=== PATIENT | female | born 2000 | race Caucasian/White ===

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

== ENCOUNTER 2018-02-14 22:34 | Emergency (ER) | payer SELFPAY ==
[2018-02-14] MEDS ORDERED: Ondansetron INJ* 2 MG/ML VIAL IV ONE (22:55)
[2018-02-14] MEDS ORDERED: Morphine INJ* 4 MG/ML 1 ML SYRINGE (NEW SYRINGE VERSION) IV ONE (22:55)
[2018-02-14] MEDS ORDERED: NS 0.9% 1000 ML* 1,000 ML IV ONE (22:55)
--- NOTE | 2018-02-14 23:00 | ED ---
GI/ HPI - HPI Summary HPI Summary: 17 female presents with left upper quadrant pain today. She started after she urinated and noticed some blood in her urine. She denies any history of kidney stones. she admits to nausea but denies vomiting. No diarrhea or constipation. no abnormal vaginal discharge. She has never had has pain before. Has history of asthma. She admits to some shortness breath from the pain. denies any chest pain. she admits to frequency. did not eat anything different. has not taken anything for symptoms. - History of Current Complaint Chief Complaint: EDAbdPain Time Seen by Provider: 02/14/18 22:48 Stated Complaint: BLOOD IN URINE Hx Last Menstrual Period: 08/26/16 Pain Intensity: 10 - Allergy/Home Medications Allergies/Adverse Reactions: Allergies Allergy/AdvReac Type Severity Reaction Status Date / Time bee venom protein (honey bee) Allergy Anaphylatic Verified 02/14/18 22:40 Shock Bleach (Sodium Hypochlorite) Allergy Hives Verified 02/14/18 22:40 ibuprofen Allergy Hives Verified 02/14/18 22:40 BLEACH Allergy Intermediate Hives Uncoded 02/14/18 22:40 mold Allergy Coughing Uncoded 02/14/18 22:40 smuts Allergy Coughing Uncoded 02/14/18 22:40 PMH/Surg Hx/FS Hx/Imm Hx Endocrine/Hematology History: Denies: Hx Diabetes, Hx Thyroid Disease Cardiovascular History: Denies: Hx Hypertension, Hx Pacemaker/ICD Respiratory History: Reports: Hx Asthma - CHILDHOOD, Hx Seasonal Allergies - takes zrytec daily Denies: Hx Chronic Obstructive Pulmonary Disease (COPD) GI History: Denies: Hx Ulcer Psychiatric History: Denies: Hx Panic Disorder - Surgical History Surgery Procedure, Year, and Place: none Infectious Disease History: No Infectious Disease History: Denies: Hx Clostridium Difficile, Hx Hepatitis, Hx Human Immunodeficiency Virus (HIV), History Other Infectious Disease, Traveled Outside the [place] in Last 30 Days - Family History Known Family History: Positive: Cardiac Disease, Hypertension, Diabetes - Social History Alcohol Use: Occasionally Hx Substance Use: No - pt reports no today 02/23/2017 Substance Use Type: Reports: Marijuana Substance Use Comment - Amount & Last Used: trying to quit Hx Tobacco Use: Yes Smoking Status (MU): Current Every Day Smoker Type: Cigarettes Amount Used/How Often: 5 cigs/day Length of Time of Smoking/Using Tobacco: 7 years Have You Smoked in the Last Year: Yes Review of Systems Negative: Fever Negative: Chest Pain Negative: Shortness Of Breath Positive: Abdominal Pain, Nausea. Negative: Vomiting Positive: flank pain, hematuria All Other Systems Reviewed And Are Negative: Yes Physical Exam Triage Information Reviewed: Yes Vital Signs On Initial Exam: Initial Vitals Temp Pulse Resp BP Pulse Ox 99.5 F 120 22 135/93 99 02/14/18 22:38 02/14/18 22:38 02/14/18 22:38 02/14/18 22:38 02/14/18 22:38 Vital Signs Reviewed: Yes Appearance: Positive: Well-Appearing Skin: Positive: Warm, Dry Head/Face: Positive: Normal Head/Face Inspection Eyes: Positive: Normal, EOMI, VERONIKA, Conjunctiva Clear ENT: Positive: Normal ENT inspection, Pharynx normal, TMs normal Respiratory/Lung Sounds: Positive: Clear to Auscultation, Breath Sounds Present Cardiovascular: Positive: Normal, RRR Abdomen Description: Positive: Soft, CVA Tenderness (L), Other: - tenderness LUQ Musculoskeletal: Positive: Normal Neurological: Positive: Normal Psychiatric: Positive: Normal Diagnostics - Vital Signs Vital Signs Temp Pulse Resp BP Pulse Ox 02/14/18 22:38 99.5 F 120 22 135/93 99 - Laboratory Result Diagrams: 02/14/18 22:52 02/14/18 22:52 Lab Statement: Any lab studies that have been ordered have been reviewed, and results considered in the medical decision making process. - CT abd CT Interpretation: No Acute Changes CT Interpretation Completed By: Radiologist - EKG No standard instances EKG Rhythm: Sinus Rhythm EKG Interpretation: sinus rhythm GIGU Course/Dx - Course Course Of Treatment: 17 female presents with left upper quadrant pain today. She started after she urinated and noticed some blood in her urine. She denies any history of kidney stones. she admits to nausea but denies vomiting. No diarrhea or constipation. no abnormal vaginal discharge. She has never had has pain before. Has history of asthma. She admits to some shortness breath. denies any chest pain. she admits to frequency. did not eat anything different. has not taken anything for symptoms. on exam has tenderness LUQ. no rebound. wbc elevated. electrolyte normal. d-dimer elevated but no risk factors for PE expect smoking. is not on control and no fam hx of blood clots. so discussed with patient and declined CTA. will just do CT without contrast. CT no acute findings. urine shows uti. will treat with dose of rocephin here. will place on cipro. patient understand and agrees with plan. - Diagnoses Differential Diagnoses - Female: Gastritis, Urinary Tract Infection, Ureteral Calculi Provider Diagnoses: UTI (urinary tract infection), Abdominal pain Discharge - Sign-Out/Discharge Documenting (check all that apply): Patient Departure - Discharge Plan Condition: Good Disposition: HOME Prescriptions: Ciprofloxacin TAB* [Cipro 500 MG TAB*] 500 mg PO BID #14 tab Phenazopyridine 200 mg (NF) [Pyridium 200 MG tab *] 200 mg PO TID #6 tab Patient Education Materials: Urinary Tract Infection in Women (ED) Referrals: Rony Ellsworth, CAMERA REPAIRER [Primary Care Provider] - Additional Instructions: Take cipro twice a day for 7 days Take pyridium three times a day with food for 2 days Follow up with primary in 7 days Return to ED if develop any new or worsening symptoms - Billing Disposition and Condition Condition: GOOD Disposition: Home
[2018-02-14 23:05] LABS: ABS Basophils 0.1 10^3/ul (0-0.2); ABS Eosinophils 0.4 10^3/ul (0-0.6); ABS Monocytes 0.8 10^3/ul (0-0.8); ABS Nucleated RBC 0 10^3/ul; Eosinophil % 2.8 % (0-6); Hematocrit 37 % (35-47); Hemoglobin 12.8 g/dl (12.0-16.0); Mean Corpuscular HGB Conc 34 g/dl (31-36); Mean Corpuscular Hemoglobin 31 pg (27-31); Mean Corpuscular Volume 90 fL (80-97); Mean Platelet Volume 9.6 um3 (7.4-10.4); Nucleated Red Blood Cells % 0.2; Platelet Count 214 10^3/ul (150-450); Red Blood Count 4.17 10^6/ul (4.00-5.40); Red Cell Distribution Width 13 % (10.5-15); White Blood Count 13.3 10^3/ul (3.5-10.8)
[2018-02-14 23:23] LABS: EGFR Non-African American 113.4 (>60)
[2018-02-14 23:44] LABS: Urine Appearance Cloudy; Urine Blood Negative (Negative); Urine Color Amber; Urine Ketones Trace (Negative); Urine Protein 1+(30 mg/dL) (Negative); Urine Red Blood Cell 2+(6-10/hpf) (Absent); Urine Urobilinogen Positive (Negative); Urine White Blood Cell 3+(>20/hpf) (Absent)
[2018-02-15] MEDS ORDERED: cefTRIAXone(*) 1 GM in NS 0.9% 50 ML* 50 ML IVPB ONE (00:21)
--- NOTE | 2018-02-15 00:32 | RAD ---
EXAM: CT Abdomen and Pelvis Without Intravenous Contrast EXAM DATE/TIME: 02/14/2018 11:57 PM CLINICAL HISTORY: 17 years old, female; Pain; Abdominal pain; Flank; Left; Additional info: Left flank pain TECHNIQUE: Axial computed tomography images of the abdomen and pelvis without intravenous contrast. All CT scans at this facility use at least one of these dose optimization techniques: automated exposure control; mA and/or kV adjustment per patient size (includes targeted exams where dose is matched to clinical indication); or iterative reconstruction. Coronal and sagittal reformatted images were created and reviewed. COMPARISON: A/P WO CT ABD/PEL W/O 05/31/2016 7:19 PM FINDINGS: Lower thorax: No acute findings. ABDOMEN: Liver: Normal. No mass. Gallbladder and bile ducts: Normal. No calcified stones. No ductal dilation. Pancreas: Normal. No ductal dilation. Spleen: Normal. No splenomegaly. Adrenals: Normal. No mass. Kidneys and ureters: Normal. No hydronephrosis. Stomach and bowel: Normal. No obstruction. No mucosal thickening. Appendix: The appendix is normal in appearance. PELVIS: Bladder: The bladder is not distended and evaluation is limited but no gross bladder pathology is identified. Reproductive: Unremarkable as visualized. ABDOMEN and PELVIS: Intraperitoneal space: Normal. No free air. No significant fluid collection. Bones/joints: There is a mild old wedge compression fracture deformity of T11, a finding also present on the previous study. Soft tissues: Unremarkable. Vasculature: Normal. No abdominal aortic aneurysm. Lymph nodes: Normal. No enlarged lymph nodes. IMPRESSION: No acute findings. To contact [facility] with a general question: [facility] - [phone] For direct physician to physician contact: Physician Hotline - [phone] [facility] ([facility] Facility ID #[id number])
[2018-02-15 01:35] VITALS: BP 122/76
== END 2018-02-15 01:30 | disposition home or self-care (01) ==
LOC: ED 22:34
DX: N39.0 Urinary tract infection, site not specified (principal); R10.12 Left upper quadrant pain; F17.210 Nicotine dependence, cigarettes, uncomplicated; R11.0 Nausea
CPT/HCPCS: 36415; 74176; 80053; 81003; 81015; 83690; 84484; 84702; 85025; 85379; 86140; 87086; 93005; 96365; 96375; 99283; J0696; J2270; J2405

== ENCOUNTER 2018-07-02 18:19 | Emergency (ER) | payer SELFPAY ==
[2018-07-02 18:29] VITALS: BP 130/67
--- NOTE | 2018-07-02 18:44 | UC ---
Throat Pain/Nasal Rafael HPI - HPI Summary HPI Summary: 3 days of sore throat w/ no other assoc. symptoms. - History of Current Complaint Chief Complaint: UCRespiratory Stated Complaint: SORE THROAT Time Seen by Provider: 07/02/18 18:21 Hx Last Menstrual Period: 2 wks ago Pain Intensity: 4 Pain Scale Used: 0-10 Numeric - Allergies/Home Medications Allergies/Adverse Reactions: Allergies Allergy/AdvReac Type Severity Reaction Status Date / Time bee venom protein (honey bee) Allergy Anaphylatic Verified 07/02/18 18:29 Shock Bleach (Sodium Hypochlorite) Allergy Hives Verified 07/02/18 18:29 ibuprofen Allergy Hives Verified 07/02/18 18:29 BLEACH Allergy Intermediate Hives Uncoded 07/02/18 18:29 mold Allergy Coughing Uncoded 07/02/18 18:29 smuts Allergy Coughing Uncoded 07/02/18 18:29 PMH/Surg Hx/FS Hx/Imm Hx Previously Healthy: Yes - Surgical History Surgical History: None Surgery Procedure, Year, and Place: none - Family History Known Family History: Positive: Cardiac Disease, Hypertension, Diabetes - Social History Alcohol Use: Occasionally Substance Use Type: None Substance Use Comment - Amount & Last Used: trying to quit Smoking Status (MU): Current Every Day Smoker Type: Cigarettes Amount Used/How Often: 5 cigs/day Length of Time of Smoking/Using Tobacco: 7 years Have You Smoked in the Last Year: Yes Household Exposure Type: Cigarettes - Immunization History Most Recent Influenza Vaccination: does not get Most Recent Tetanus Shot: UTD Vaccination Up to Date: Yes Review of Systems All Other Systems Reviewed And Are Negative: Yes Physical Exam Vital Signs: Initial Vital Signs Temp 98.7 F 07/02/18 18:27 Pulse 95 07/02/18 18:27 Resp 12 07/02/18 18:27 BP 130/67 07/02/18 18:27 Pulse Ox 100 07/02/18 18:27 Discharge - Sign-Out/Discharge Documenting (check all that apply): Patient Departure All imaging exams completed and their final reports reviewed: No Studies - Discharge Plan Condition: Good Disposition: HOME Prescriptions: Dextromethorphan/Benzocaine [Cepacol Sorethroat-Cough Herbert] 1 each PO Q2HR #90 lozenge Patient Education Materials: Pharyngitis (ED) Referrals: Rony Ellsworth, [employer] SAL[employer] REPRESENTATIVES [Primary Care Provider] - Additional Instructions: if no improvement please follow up with your pcp - Billing Disposition and Condition Condition: GOOD Disposition: Home
== END 2018-07-02 19:21 | disposition home or self-care (01) ==
LOC: UCEAST 18:19
DX: J02.9 Acute pharyngitis, unspecified (principal); F17.210 Nicotine dependence, cigarettes, uncomplicated; Z88.8 Allergy status to other drugs, medicaments and biological substances; Z91.09 Other allergy status, other than to drugs and biological substances; Z91.030 Bee allergy status
CPT/HCPCS: 87651; 99212; G0463

== ENCOUNTER 2018-08-10 19:09 | Emergency (ER) | payer SELFPAY ==
[2018-08-10 19:56] VITALS: BP 136/64
--- NOTE | 2018-08-10 20:13 | UC ---
Abdominal Pain Female HPI - HPI Summary HPI Summary: Patient presents to urgent care reporting nausea and vomiting as her 2 days ago patient states she was at work will happen. Patient states she did not go to work yesterday because she vomited throughout the day. Patient states he was her day off. Patient's only one episode of emesis today. Patient denies fevers or chills. Patient denies diarrhea. Patient denies any rash. Patient denies dysuria or hematuria. No vaginal discharge itching or odor. Patient states her LMP 3 weeks ago. Patient here requesting a note for work. no abdominal pain. Patient's medications reviewed this visit - History of Current Complaint Chief Complaint: UCGeneralIllness Stated Complaint: LIGHT HEADED VOMITING Time Seen by Provider: 08/10/18 20:04 Hx Obtained From: Patient Hx Last Menstrual Period: 06/22/18 Onset/Duration: Gradual Onset Severity Initially: Mild Severity Currently: None Pain Intensity: 0 Allergies/Adverse Reactions: Allergies Allergy/AdvReac Type Severity Reaction Status Date / Time bee venom protein (honey bee) Allergy Anaphylatic Verified 08/10/18 19:56 Shock Bleach (Sodium Hypochlorite) Allergy Hives Verified 08/10/18 19:56 ibuprofen Allergy Hives Verified 08/10/18 19:56 BLEACH Allergy Intermediate Hives Uncoded 08/10/18 19:56 mold Allergy Coughing Uncoded 08/10/18 19:56 smuts Allergy Coughing Uncoded 08/10/18 19:56 Home Medications: Home Medications NK [No Home Medications Reported] 08/10/18 [History Confirmed 08/10/18] PMH/Surg Hx/FS Hx/Imm Hx Previously Healthy: Yes - Surgical History Surgical History: None Surgery Procedure, Year, and Place: none - Family History Known Family History: Positive: Cardiac Disease, Hypertension, Diabetes - Social History Occupation: Employed Full-time Lives: With Family Alcohol Use: Rare Substance Use Type: None Substance Use Comment - Amount & Last Used: trying to quit Smoking Status (MU): Light Every Day Tobacco Smoker Type: Cigarettes Amount Used/How Often: 5 cigs/day Length of Time of Smoking/Using Tobacco: 7 years Have You Smoked in the Last Year: Yes Household Exposure Type: Cigarettes - Immunization History Most Recent Influenza Vaccination: does not get Most Recent Tetanus Shot: UTD Vaccination Up to Date: Yes Review of Systems All Other Systems Reviewed And Are Negative: Yes Gastrointestinal: Positive: Vomiting, Nausea Genitourinary: Positive: Negative Is Patient Immunocompromised?: No Physical Exam - Summary Physical Exam Summary: Vital Signs Reviewed: Yes A+Ox3, no distress Eyes: Conjunctiva Clear, VERONIKA. EOM intact and full ENT: Hearing grossly normal TM x 2 clear, mmoist, uvula midline, no exudate, no erythema Neck: Positive: Supple Respiratory: Positive: No respiratory distress, No accessory muscle use + CTA throughout no w/r Cardiovascular: RRR nl s1, s2 no m/r CBT <2 sec abd soft + BS nt/nd no guarding, no distension, no CVA Musculoskeletal Exam: FRANCISCO x 4 without difficulty Strength Intact, ROM Intact Neurological: Positive: Alert, + sensation throughout Psychological: Positive: Normal Response To Family Skin: Positive: no rash, no ecchymosis Triage Information Reviewed: Yes Vital Signs: Initial Vital Signs Temp 98.3 F 08/10/18 19:52 Pulse 90 08/10/18 19:52 Resp 18 08/10/18 19:52 BP 136/64 08/10/18 19:52 Pulse Ox 100 08/10/18 19:52 Abd Pain Female Course/Dx - Course Course Of Treatment: Patient presents to urgent care reporting been drinking water without emesis. No fevers or chills. Patient states today she is only vomited once this morning. Vital signs are stable. Exam is normal concerning. Mucous members are moist. Patient's urine reviewed. We'll send for culture. Patient's . Patient declined offer for Zofran. Patient requesting a note for work for yesterday. Patient strict return precautions discussed. Comfortable in agreement with plan. - Differential Dx/Diagnosis Provider Diagnosis: Nausea & vomiting Discharge - Sign-Out/Discharge Documenting (check all that apply): Patient Departure All imaging exams completed and their final reports reviewed: No Studies - Discharge Plan Condition: Stable Disposition: HOME Patient Education Materials: Acute Nausea and Vomiting (ED) Forms: *Gen. Provider Communication Referrals: Rony Ellsworth, MINILAB OPERATOR [Primary Care Provider] - Additional Instructions: - For the first 6 hours, eat and drink clears (water, jayde lenka, soup broth, jello, popsicles, Gatorade). If you tolerate this okay, add bland foods such as dry toast, scrambled eggs, crackers. Wait until you are feeling better for 24 hours before eating spicy food, acidic food, tomato based food, fried food. -These infections are spread by oral secretions. Do not share eating or drinking utensils. Frequent hand washing is important. Clean items that may get your secretions on them such as cell phones, ipads, computer mouse, television remotes. Once you start to feel better, change your pillowcase and your toothbrush - Billing Disposition and Condition Condition: STABLE Disposition: Home
== END 2018-08-10 20:34 | disposition home or self-care (01) ==
LOC: UCEAST 19:09
DX: R11.2 Nausea with vomiting, unspecified (principal); Z88.6 Allergy status to analgesic agent; Z91.030 Bee allergy status; Z91.048 Other nonmedicinal substance allergy status; F17.210 Nicotine dependence, cigarettes, uncomplicated
CPT/HCPCS: 81003; 84702; 87086; 99211; G0463

== ENCOUNTER 2018-10-25 20:40 | Emergency (ER) | payer SELFPAY ==
[2018-10-25 20:50] VITALS: BP 149/82
[2018-10-25 21:31] LABS: ABS Eosinophils 0.3 10^3/ul (0-0.6); ABS Lymphocytes 2.1 10^3/ul (1.0-4.8); ABS Monocytes 0.8 10^3/ul (0-0.8); ABS Neutrophils 8.5 10^3/ul (1.5-7.7); Eosinophil % 2.5 %; Hematocrit 37 % (35-47); Hemoglobin 12.2 g/dL (12.0-16.0); Lymphocyte % 18.1 %; Mean Corpuscular HGB Conc 33 g/dL (31-36); Mean Corpuscular Hemoglobin 30 pg (27-31); Mean Corpuscular Volume 91 fL (80-97); Mean Platelet Volume 9.3 fL (7.4-10.4); Platelet Count 196 10^3/uL (150-450); Red Blood Count 4.05 10^6 /uL (3.70-4.87); Red Cell Distribution Width 12 % (10-15); White Blood Count 11.8 10^3/uL (3.5-10.8)
[2018-10-25 21:44] LABS: Activated Partial Thrombo Time 32.8 seconds (26.0-38.0); INR 1.15 (0.82-1.09)
[2018-10-25 21:49] LABS: ALT 7 U/L (7-52); AST 9 U/L (13-39); Albumin 4.1 g/dL (3.2-5.2); Albumin/Globulin Ratio 1.1 (1-3); Alkaline Phosphatase 63 U/L (34-104); Anion Gap 6 mmol/L (2-11); BUN/Creatinine Ratio 19.2 (8-20); Blood Urea Nitrogen 10 mg/dL (6-24); CO2 Carbon Dioxide 28 mmol/L (22-32); Calcium 9.4 mg/dL (8.6-10.3); Chloride 105 mmol/L (101-111); EGFR African American 181.9 (>60); EGFR Non-African American 150.3 (>60); Globulin 3.8 g/dL (2-4); Glucose 109 mg/dL (70-100); Potassium 3.5 mmol/L (3.5-5.0); Sodium 139 mmol/L (135-145); Total Protein 7.9 g/dL (6.4-8.9)
[2018-10-25 21:55] LABS: HCG Pregnancy < 0.60 mIU/mL
[2018-10-25 22:35] LABS: Urine Appearance Cloudy; Urine Bacteria Absent (Absent); Urine Bilirubin Negative (Negative); Urine Blood Negative (Negative); Urine Color Amber; Urine Glucose Negative (Negative); Urine Ketones Trace (Negative); Urine Nitrite Negative (Negative); Urine Protein 1+(30 mg/dL) (Negative); Urine Red Blood Cell Absent (Absent); Urine Specific Gravity 1.031 (1.010-1.030); Urine Squamous Epithelial Cell Present (Absent); Urine Urobilinogen Positive (Negative); Urine White Blood Cell 3+(>20/hpf) (Absent)
== END 2018-10-25 23:07 | disposition left against medical advice (07) ==
LOC: ED 20:40
DX: Z53.21 Procedure and treatment not carried out due to patient leaving prior to being seen by health care provider (principal)
CPT/HCPCS: 36415; 80053; 81003; 81015; 83690; 84702; 85025; 85610; 85730; 87086; 99282

== ENCOUNTER → 2018-10-26 19:36 | Emergency (ER) | payer SELFPAY ==
[~2018-10-26 19:36] MED LIST changes: -Ketorolac INJ* 30 MG/ML 1 ML VIAL IV PUSH ONE; +Lactated Ringers 1000 ML Bag* 1,000 ML IV SCH
--- NOTE | 2018-10-26 20:47 | ED ---
GI/ HPI - HPI Summary HPI Summary: This patient is a 18 year old F presenting to ED with a chief complaint of vaginal bleeding since three weeks ago. She reports always having a normal period and this is new. Patient is not on control or any medications. She does not know if she is and is sexually active without protection. A3 with three miscarriages. The patient rates the pain 4/10 in severity. Symptoms aggravated by active movement. Symptoms alleviated by nothing. Patient reports intermittent RLQ abdominal pain radiating into the back. - History of Current Complaint Chief Complaint: EDAbdPain Time Seen by Provider: 10/26/18 20:38 Stated Complaint: VAGINAL BLEEDING,ABD PAIN PER PT Hx Obtained From: Patient Hx Last Menstrual Period: 06/22/18 Onset/Duration: Started Weeks Ago - 3, Still Present Timing: Intermittent Current Severity: Moderate Pain Intensity: 4 Location of Pain: Radiates to: - Back, RLQ Pain Radiates to: Back Additional Signs & Symptoms: Positive: Vaginal Bleeding Aggravating Factor(s): Movement Alleviating Factor(s): Nothing - Allergy/Home Medications Allergies/Adverse Reactions: Allergies Allergy/AdvReac Type Severity Reaction Status Date / Time bee venom protein (honey bee) Allergy Anaphylatic Verified 10/26/18 19:41 Shock Bleach (Sodium Hypochlorite) Allergy Hives Verified 10/26/18 19:41 ibuprofen Allergy Hives Verified 10/26/18 19:41 BLEACH Allergy Intermediate Hives Uncoded 10/26/18 19:41 mold Allergy Coughing Uncoded 10/26/18 19:41 smuts Allergy Coughing Uncoded 10/26/18 19:41 PMH/Surg Hx/FS Hx/Imm Hx Endocrine/Hematology History: Denies: Hx Diabetes, Hx Thyroid Disease Cardiovascular History: Denies: Hx Hypertension, Hx Pacemaker/ICD Respiratory History: Reports: Hx Asthma - CHILDHOOD, Hx Seasonal Allergies - takes zrytec daily Denies: Hx Chronic Obstructive Pulmonary Disease (COPD) GI History: Denies: Hx Ulcer Psychiatric History: Denies: Hx Panic Disorder - Surgical History Surgery Procedure, Year, and Place: none Infectious Disease History: No Infectious Disease History: Denies: Hx Clostridium Difficile, Hx Hepatitis, Hx Human Immunodeficiency Virus (HIV), History Other Infectious Disease, Traveled Outside the [place] in Last 30 Days - Family History Known Family History: Positive: Cardiac Disease, Hypertension, Diabetes - Social History Alcohol Use: Rare Hx Substance Use: No - pt reports no today 02/23/2017 Substance Use Type: Reports: None Substance Use Comment - Amount & Last Used: trying to quit Hx Tobacco Use: Yes Smoking Status (MU): Light Every Day Tobacco Smoker Type: Cigarettes Amount Used/How Often: 5 cigs/day Length of Time of Smoking/Using Tobacco: 7 years Have You Smoked in the Last Year: Yes Review of Systems Positive: Abdominal Pain Genitourinary: Other - Vaginal bleeding Musculoskeletal: Other - Back pain All Other Systems Reviewed And Are Negative: Yes Physical Exam - Summary Physical Exam Summary: VITAL SIGNS: Reviewed. GENERAL: Patient is a well-developed and nourished female who is lying comfortable in the stretcher. Patient is not in any acute respiratory distress. HEAD AND FACE: No signs of trauma. No ecchymosis, hematomas or skull depressions. No sinus tenderness. EYES: PERRLA, EOMI x 2, No injected conjunctiva, no nystagmus. EARS: Hearing grossly intact. Ear canals and tympanic membranes are within normal limits. MOUTH: Oropharynx within normal limits. NECK: Supple, trachea is midline, no adenopathy, no JVD, no carotid bruit, no c- spine tenderness, neck with full ROM CHEST: Symmetric, no tenderness at palpation LUNGS: Clear to auscultation bilaterally. No wheezing or crackles. CVS: Regular rate and rhythm, S1 and S2 present, no murmurs or gallops appreciated. ABDOMEN: right pelvic tenderness EXTREMITIES: FROM in all major joints, no edema, no cyanosis or clubbing. NEURO: Alert and oriented x 3. No acute neurological deficits. Speech is normal and follows commands. SKIN: Dry and warm Triage Information Reviewed: Yes Vital Signs On Initial Exam: Initial Vitals Temp Pulse Resp BP Pulse Ox 97.2 F 101 16 133/80 99 10/26/18 19:39 10/26/18 19:39 10/26/18 19:39 10/26/18 19:39 10/26/18 19:39 Vital Signs Reviewed: Yes Diagnostics - Vital Signs Vital Signs Temp Pulse Resp BP Pulse Ox 10/26/18 19:39 97.2 F 101 16 133/80 99 - Laboratory Result Diagrams: 10/26/18 20:56 10/26/18 20:56 Lab Statement: Any lab studies that have been ordered have been reviewed, and results considered in the medical decision making process. - Ultrasound Transvaginal Ultrasound Interpretation Completed By: Radiologist Summary of Ultrasound Findings: Heterogeneously hypoechoic tubular structure adjacent to the left ovary which may represent complicated hydrosalpinx such as hydrosalpinx or hematosalpinx. Correlate clinically for PID. Dr. Aragon has reviewed this radiology report. GIGU Course/Dx - Course Course Of Treatment: This patient is a 18 year old F presenting to ED with a chief complaint of vaginal bleeding since three weeks ago. In the ED course, patient received lactated ringer. Blood work obtained. Transvaginal US revealed heterogeneously hypoechoic tubular structure adjacent to the left ovary which may represent complicated hydrosalpinx such as hydrosalpinx or hematosalpinx. Correlate clinically for PID. Patient will be discharged home with dx of menorrhagia and instructions to follow up with OB tomorrow. Patient understands and agrees with this plan. - Diagnoses Provider Diagnoses: Menorrhagia Discharge - Sign-Out/Discharge Documenting (check all that apply): Patient Departure - Discharge Patient Received Moderate/Deep Sedation with Procedure: No - Discharge Plan Condition: Stable Disposition: HOME Patient Education Materials: Menorrhagia (ED) Referrals: Rony Ellsworth NP [Primary Care Provider] - 2 Days Simeon Guzman MD [Medical Doctor] - 1 Day Additional Instructions: Follow up with your primary care provider in 1-2 days. Follow up with Dr. Guzman , OB, today. RETURN TO THE ER FOR WORSENING OR CHANGING SYMPTOMS. - Attestation Statements Document Initiated by Scribe: Yes Documenting Scribe: Luis Daley Provider For Whom Scribblu is Documenting (Include Credential): Meir Aragon MD Scribe Attestation: Luis Berrios, scribed for Meir Aragon MD on 10/27/18 at 0144. Status of Scribe Document: Ready
[2018-10-26 21:06] LABS: ABS Basophils 0.1 10^3/ul (0-0.2); ABS Eosinophils 0.3 10^3/ul (0-0.6); ABS Lymphocytes 2.2 10^3/ul (1.0-4.8); ABS Monocytes 0.9 10^3/ul (0-0.8); ABS Neutrophils 8.1 10^3/ul (1.5-7.7); Eosinophil % 2.2 %; Hematocrit 35 % (35-47); Hemoglobin 11.8 g/dL (12.0-16.0); Mean Corpuscular HGB Conc 34 g/dL (31-36); Mean Corpuscular Hemoglobin 30 pg (27-31); Mean Corpuscular Volume 89 fL (80-97); Mean Platelet Volume 9.6 fL (7.4-10.4); Platelet Count 198 10^3/uL (150-450); Red Blood Count 3.94 10^6 /uL (3.70-4.87); Red Cell Distribution Width 12 % (10-15); White Blood Count 11.5 10^3/uL (3.5-10.8)
[2018-10-26 21:27] LABS: ALT 7 U/L (7-52); AST 11 U/L (13-39); Alkaline Phosphatase 69 U/L (34-104); Anion Gap 9 mmol/L (2-11); Blood Urea Nitrogen 9 mg/dL (6-24); CO2 Carbon Dioxide 26 mmol/L (22-32); Chloride 102 mmol/L (101-111); EGFR Non-African American 147.1 (>60); Glucose 97 mg/dL (70-100); Potassium 3.5 mmol/L (3.5-5.0); Sodium 137 mmol/L (135-145)
[2018-10-26 21:33] LABS: HCG Pregnancy < 0.60 mIU/mL
[2018-10-27 03:27] VITALS: BP 0/0
== END | disposition home or self-care (01) ==
LOC: ED 19:36
DX: N92.0 Excessive and frequent menstruation with regular cycle (principal); Z88.8 Allergy status to other drugs, medicaments and biological substances; F17.210 Nicotine dependence, cigarettes, uncomplicated
CPT/HCPCS: 36415; 76830; 80053; 84702; 85025; 86850; 86900; 86901; 96360; 96361; 99283

== ENCOUNTER 2019-03-05 14:57 | Emergency (ER) | payer SELFPAY ==
[2019-03-05 15:08] VITALS: BP 140/71
== END 2019-03-05 17:13 | disposition left against medical advice (07) ==
LOC: ED 14:57
DX: Z53.21 Procedure and treatment not carried out due to patient leaving prior to being seen by health care provider (principal); R09.81 Nasal congestion
CPT/HCPCS: 99281

== ENCOUNTER 2019-06-23 11:10 | Emergency (ER) | payer MEDICAID ==
[2019-06-23 13:05] LABS: Hematocrit 38 % (35-47); Hemoglobin 12.9 g/dL (12.0-16.0); Mean Corpuscular HGB Conc 34 g/dL (31-36); Mean Corpuscular Hemoglobin 30 pg (27-31); Mean Corpuscular Volume 88 fL (80-97); Red Blood Count 4.31 10^6 /uL (3.70-4.87); Red Cell Distribution Width 15 % (10-15); White Blood Count 5.8 10^3/uL (3.5-10.8)
[2019-06-23 13:14] LABS: ALT 11 U/L (7-52); AST 13 U/L (13-39); Albumin 4.5 g/dL (3.2-5.2); Albumin/Globulin Ratio 1.1 (1-3); Alkaline Phosphatase 54 U/L (34-104); Anion Gap 7 mmol/L (2-11); BUN/Creatinine Ratio 19.6 (8-20); Blood Urea Nitrogen 10 mg/dL (6-24); CO2 Carbon Dioxide 27 mmol/L (22-32); Calcium 9.2 mg/dL (8.6-10.3); Chloride 104 mmol/L (101-111); EGFR African American 184.2 (>60); EGFR Non-African American 152.2 (>60); Glucose 93 mg/dL (70-100); Sodium 138 mmol/L (135-145); Total Protein 8.5 g/dL (6.4-8.9)
[2019-06-23 13:20] LABS: HCG Pregnancy < 0.60 mIU/mL
[2019-06-23 13:33] LABS: ABS Eosinophils 0.1 10^3/ul (0-0.6); ABS Lymphocytes 1.8 10^3/ul (1.0-4.8); ABS Monocytes 0.7 10^3/ul (0-0.8); ABS Neutrophils 3.2 10^3/ul (1.5-7.7); Eosinophil % 1.1 %; Lymphocyte % 31.5 %; Mean Platelet Volume 10.4 fL (7.4-10.4); Nucleated Red Blood Cells % 0.1; Platelet Count 93 10^3/uL (150-450)
--- NOTE | 2019-06-23 14:13 | ED ---
GI/ HPI - HPI Summary HPI Summary: 19 year old F presenting to [facility] accompanied by mother of complains of heavy vaginal bleeding and hematuria since 06/11/2019. Patient reports cramping, weight loss, and thinning hair. Last known menstrual period was a few months ago and the patient is not on control. Patient denies fever. PMHx of asthma. FHx of thyroid issues. Allergy to ibuprofen noted. The patient rates the pain 0/10 in severity. Symptoms aggravated by nothing. Symptoms alleviated by nothing. Medications reviewed. Allergies noted. Home Medications Medication Instructions Recorded Confirmed Type Tranexamic Acid 1,300 mg PO TID 5 Days #30 tablet 06/23/19 Rx - History of Current Complaint Chief Complaint: EDUrogenitalProblems Time Seen by Provider: 06/23/19 13:51 Stated Complaint: VAGINAL BLEEDING PER PT Hx Obtained From: Patient Hx Last Menstrual Period: 06/22/18 Onset/Duration: Started Weeks Ago, Still Present Timing: Constant Pain Intensity: 0 Associated Signs and Symptoms: Positive: Hematuria, Other: - positive - heavy vaginal bleeding, cramping, weight loss, hair thinning. Negative: Fever Aggravating Factor(s): Nothing Alleviating Factor(s): Nothing - Allergy/Home Medications Allergies/Adverse Reactions: Allergies Allergy/AdvReac Type Severity Reaction Status Date / Time bee venom protein (honey bee) Allergy Anaphylatic Verified 06/23/19 11:30 Shock Bleach (Sodium Hypochlorite) Allergy Hives Verified 06/23/19 11:30 ibuprofen Allergy Hives Verified 06/23/19 11:30 BLEACH Allergy Intermediate Hives Uncoded 10/26/18 19:41 mold Allergy Coughing Uncoded 10/26/18 19:41 smuts Allergy Coughing Uncoded 10/26/18 19:41 Home Medications: Home Medications Tranexamic Acid 1,300 mg PO TID 5 Days #30 tablet 06/23/19 [Rx] PMH/Surg Hx/FS Hx/Imm Hx Endocrine/Hematology History: Denies: Hx Diabetes, Hx Thyroid Disease Cardiovascular History: Denies: Hx Hypertension, Hx Pacemaker/ICD Respiratory History: Reports: Hx Asthma - CHILDHOOD, Hx Seasonal Allergies - takes zrytec daily Denies: Hx Chronic Obstructive Pulmonary Disease (COPD) GI History: Denies: Hx Ulcer Psychiatric History: Denies: Hx Panic Disorder - Surgical History Surgery Procedure, Year, and Place: none Infectious Disease History: No Infectious Disease History: Denies: Hx Clostridium Difficile, Hx Hepatitis, Hx Human Immunodeficiency Virus (HIV), History Other Infectious Disease, Traveled Outside the [place] in Last 30 Days - Family History Known Family History: Positive: Cardiac Disease, Hypertension, Diabetes - Social History Alcohol Use: Rare Hx Substance Use: No - pt reports no today 02/23/2017 Substance Use Type: Reports: None Substance Use Comment - Amount & Last Used: trying to quit Hx Tobacco Use: Yes Smoking Status (MU): Light Every Day Tobacco Smoker Type: Cigarettes Amount Used/How Often: 5 cigs/day Length of Time of Smoking/Using Tobacco: 7 years Have You Smoked in the Last Year: Yes Review of Systems Positive: Other - weight loss, thinning hair . Negative: Fever Positive: Other - cramping Positive: hematuria, other - heavy vaginal bleeding All Other Systems Reviewed And Are Negative: Yes Physical Exam - Summary Physical Exam Summary: Constitutional: Well-developed, Well-nourished, Alert. (-) Distressed Skin: Warm, Dry HENT: Normocephalic; Atraumatic Eyes: Conjunctiva normal Neck: Musculoskeletal ROM normal neck. (-) JVD, (-) Stridor, (-) Tracheal deviation Cardio: Rhythm regular, rate normal, Heart sounds normal; Intact distal pulses; Radial pulses are 2+ and symmetric. (-) Murmur Pulmonary/Chest wall: Effort normal. (-) Respiratory distress, (-) Wheezes, (-) Rales Abd: Mild suprapubic tenderness, small amount of blood in vaginal vault, no discharge, no cervical lesions, no adnexal tenderness, no uterine tenderness Musculoskeletal: (-) Edema Lymph: (-) Cervical adenopathy Neuro: Alert, Oriented x3 Psych: Mood and affect Normal Triage Information Reviewed: Yes Vital Signs On Initial Exam: Initial Vitals Temp Pulse Resp BP Pulse Ox 98.6 F 95 18 110/77 97 06/23/19 11:25 06/23/19 11:25 06/23/19 11:25 06/23/19 11:25 06/23/19 11:25 Vital Signs Reviewed: Yes Procedures - Sedation Patient Received Moderate/Deep Sedation with Procedure: No Diagnostics - Vital Signs Vital Signs Temp Pulse Resp BP Pulse Ox 06/23/19 11:25 98.6 F 95 18 110/77 97 - Laboratory Lab Results: Lab Results 06/23/19 06/23/19 Range/Units 12:31 12:31 WBC 5.8 (3.5-10.8) 10^3/uL RBC 4.31 (3.70-4.87) 10^6 /uL Hgb 12.9 (12.0-16.0) g/dL Hct 38 (35-47) % MCV 88 (80-97) fL MCH 30 (27-31) pg MCHC 34 (31-36) g/dL RDW 15 (10-15) % Plt Count 93 L (150-450) 10^3/uL MPV 10.4 (7.4-10.4) fL Neut % (Auto) 54.6 % Lymph % (Auto) 31.5 % Sutter % (Auto) 12.4 % Eos % (Auto) 1.1 % Baso % (Auto) 0.4 % Absolute Neuts (auto) 3.2 (1.5-7.7) 10^3/ul Absolute Lymphs (auto) 1.8 (1.0-4.8) 10^3/ul Absolute Monos (auto) 0.7 (0-0.8) 10^3/ul Absolute Eos (auto) 0.1 (0-0.6) 10^3/ul Absolute Basos (auto) 0.0 (0-0.2) 10^3/ul Absolute Nucleated RBC 0.0 10^3/ul Nucleated RBC % 0.1 Hem Pathologist Commnt Pending Sodium 138 (135-145) mmol/L Potassium 4.0 (3.5-5.0) mmol/L Chloride 104 (101-111) mmol/L Carbon Dioxide 27 (22-32) mmol/L Anion Gap 7 (2-11) mmol/L BUN 10 (6-24) mg/dL Creatinine 0.51 (0.51-0.95) mg/dL Est GFR ( Amer) 184.2 (>60) Est GFR (Non-Af Amer) 152.2 (>60) BUN/Creatinine Ratio 19.6 (8-20) Glucose 93 (70-100) mg/dL Calcium 9.2 (8.6-10.3) mg/dL Total Bilirubin 0.30 (0.2-1.0) mg/dL AST 13 (13-39) U/L ALT 11 (7-52) U/L Alkaline Phosphatase 54 (34-104) U/L Total Protein 8.5 (6.4-8.9) g/dL Albumin 4.5 (3.2-5.2) g/dL Globulin 4.0 (2-4) g/dL Albumin/Globulin Ratio 1.1 (1-3) Beta HCG, Quant < 0.60 mIU/mL Result Diagrams: 06/23/19 12:31 06/23/19 12:31 Lab Statement: Any lab studies that have been ordered have been reviewed, and results considered in the medical decision making process. - Ultrasound Transvaginal US Ultrasound Interpretation Completed By: Radiologist Summary of Ultrasound Findings: IMPRESSION: Complex cyst with debris and septations in the right ovary measuring up to 2.3 cm. Additional adjacent cyst is noted measuring up to 2.3 cm with fluid surrounding the right ovary. No free fluid is noted in the cul-de-sac. Endometrial echo measures 1.1 cm likely representing phase of the patient's menstrual cycle. has reviewed this report. GIGU Course/Dx - Course Course Of Treatment: Patient is here with 2 weeks of heavy vaginal bleeding. Patient is not . Patient is hemodynamically stable. Patient's CBC shows no concerning abnormality. Patient is thrombocytopenic which she has been in the past. Had her thyroid function checked which was normal. Patient was started on TX A and will follow up with [facility] who she was referred to. - Diagnoses Provider Diagnoses: Menorrhagia Discharge ED - Sign-Out/Discharge Documenting (check all that apply): Patient Departure - Discharge - Discharge Plan Condition: Stable Disposition: HOME Prescriptions: Tranexamic Acid 1,300 mg PO TID 5 Days #30 tablet Patient Education Materials: Menorrhagia (ED) Referrals: Marcella Kitchen MD [Medical Doctor] - 3 Days Additional Instructions: Please follow up with within 3 days. Take medications as prescribed. Come back if you feel like passing out, have trouble walking, or have severe pain or vaginal bleeding. - Billing Disposition and Condition Condition: STABLE Disposition: Home - Attestation Statements Document Initiated by Scribe: Yes Documenting Scribe: Villa Daley Provider For Whom Scribe is Documenting (Include Credential): Mal Cruz MD Scribe Attestation: I, Villa Baez and Luis Daley, scribed for Mal Cruz MD on 06/23/19 at 1831. Scribe Documentation Reviewed: Yes Provider Attestation: The documentation as recorded by the scribe, Villa Baez and Luis Daley accurately reflects the service I personally performed and the decisions made by me, Mal Cruz MD Status of Scribe Document: Viewed
[2019-06-23 14:37] LABS: TSH (Thyroid Stimulating Horm) 0.52 mcIU/mL (0.34-5.60)
[2019-06-23 14:39] LABS: Free T4 1.03 ng/dL (0.61-1.12)
[2019-06-23 16:19] VITALS: BP 126/74
[2019-06-24 12:57] LABS: Chlamydia trachomatis NAA Positive (Negative); Neisseria gonorrhoeae (GC) NAA Negative (Negative)
[2019-06-24 13:12] LABS: Trichomonas vag NAA Female Positive (Negative)
--- NOTE | 2019-06-24 15:00 | ED ---
Imaging and Labs Follow Up Follow Up Type: Labs/Cultures Labs/Culture Result: patient is positive for chlamydia and trichomonas Patient Communication/Plan: lef telling to call back for results. sent script for azithromycin 1gram and flagyl 500mg bid x7 days Provider Diagnoses: Menorrhagia
== END 2019-06-23 16:18 | disposition home or self-care (01) ==
LOC: ED 11:10
DX: N92.0 Excessive and frequent menstruation with regular cycle (principal); A74.9 Chlamydial infection, unspecified; A59.01 Trichomonal vulvovaginitis; N83.201 Unspecified ovarian cyst, right side; Z88.6 Allergy status to analgesic agent; Z91.030 Bee allergy status; Z91.048 Other nonmedicinal substance allergy status; F17.210 Nicotine dependence, cigarettes, uncomplicated
CPT/HCPCS: 36415; 76830; 80053; 84439; 84443; 84702; 85025; 85060; 87480; 87491; 87510; 87591; 87661; 99282